=== PATIENT | female | born 1965 | race Caucasian/White ===

== ENCOUNTER → 2016-11-05 | Day surgery (SDC) | payer OTHER ==
[2016-10-29 09:01] VITALS: Ht 157.5 cm; Wt 50.0 kg
[~2016-11-05] VITALS: Ht 157.5 cm; Wt 50.0 kg
[~2016-11-05] MED LIST: ACET325T96 PO; ASCA500 PO; ATROPINE SULFATE 0.1 MG/ML 5ML SYR IV PRN; ATV/1 PO; B-COTAB18 PO; BLACK COHOSH PO; CALC-51 PO; CALC500T68 PO; CHOL1000 PO; CRAN500C2 PO; DICY10CA55 PO; ENDOSCOPIC MARKER 5 ML SYR ONE; EpHEDrine SULFATE INJ 50 MG/ML AMP IV PRN; FERROUS SULFATE PO; GABA PO; GLUC1CAP35 PO; LIDOCAINE HCL 2% 2 ML VIAL (20MG/ML) ONE; LYSI500C4 PO; MELA3TAB7 PO; MULT-1018 PO; MULT-506 PO; OPTIRAY 320 IV PRN; PROPOFOL IV EMULSION 10 MG/ML 20 ML VIAL IV ONE; PSYL1CAP4 PO; S-AD1TAB6 PO; SODIUM CHLORIDE 0.9% 500ML 500 ML IV ONE; TRYP500C PO; VALERIAN ROOT PO; VITA80005 PO; VITAMIN B12 PO; [UNRECOGNIZED DRUG - CODE] PO; [UNRECOGNIZED DRUG - OTHER] PO; [UNRECOGNIZED DRUG - OTHER] PO
--- NOTE | 2016-11-05 08:46 | Endo History and Physical ---
History & Physical Date of Service: Nov 05, 2016. Chief Complaint: rectal bleeding,positive stool card Referring Physician: Dr.Michael Disla History of Present Illness 51 yo CF who presents for colonoscopy secondary to rectal bleeding. Past Surgical History Hx Cardiac Surgery: No Hx Internal Defibrillator: No Hx Pacemaker: No Hx Abdominal Surgery: Yes (DAYLIN) Hx of Implantable Prosthesis: No Hx Post-Op Nausea and Vomiting: No Hx Cancer Surgery: No Hx Thoracic Surgery: No Hx Orthopedic: No Hx Urinary Tract Surgery: No Family History Colon CA Social History Smoking Status: Never Smoker Hx Substance Use: No Hx Alcohol Use: No Allergies Coded Allergies: No Known Allergies (Verified , 11/05/16) Current Medications Reported Home Medications Medications Dose Route/Sig Max Daily Dose Days Date Category [Fede] 1 Cap PO BID 10/29/16 Reported L-Tryptophan (Tryptophan) 500 Mg Cap 1 Cap PO BID 10/29/16 Reported [Valerian Root] 1,000 Mg PO HS 10/29/16 Reported [Melatonin] 12 Mg PO HS 10/29/16 Reported [Black Cohosh] 1 Cap PO DAILY AFTERNOON 10/29/16 Reported Evening [place] Oil 500 mg (Evening [place] Oil) 1 Cap Cap 1 Cap PO QAM 10/29/16 Reported [Germán Yeast] 1 Cap PO QAM 10/29/16 Reported Fiber (Psyllium) 0.52 Gm Cap 2 Cap PO BID 10/29/16 Reported Multivitamin (Multivitamins) Tab 1 Tab PO QAM 10/29/16 Reported [Vitamin B12] 6,000 Mcg PO QAM 10/29/16 Reported Vitamin B Complex (B-Complex Vitamins) 1 Tab Tab 1 Tab PO QAM 10/29/16 Reported [Ferrous Sulfate] 65 Mg PO QAM 10/29/16 Reported Bentyl (Dicyclomine Hcl) 10 Mg Cap 10 Mg PO TID PRN 10/29/16 Reported Calcium (Calcium Carbonate-Vitamin D) 1 Tab Tab 1 Tab PO HS 03/04/16 Reported Cranberry (Cranberry (Vaccinium Macrocarp) 500 Mg Cap 500 Mg PO QAM 03/04/16 Reported Glucosamine Chondroitin (Qnvarvotfvk-Yjmkyxpxxyc-Zxa C-) 1 Cap Cap 1 Cap PO BID 03/04/16 Reported Vital Signs Weight (Kilograms): 50 Height (Feet): 5 Height (Inches): 2 Date Time Temp Pulse Resp B/P (MAP) Pulse Ox O2 Delivery O2 Flow Rate FiO2 11/05/16 08:19 36 77 20 104/60 (75) 98 Room Air Physical Exam General Appearance: WD/WN, no apparent distress Respiratory/Chest: Auscultation: breath sounds normal Cardiovascular: Heart Auscultation: RRR Abdomen: Bowel Sounds: normal Inspection & Palpation: soft, non-distended, no tenderness, guarding & rebound Assessment and Plan Assessment: 51 yo CF who presents for colonoscopy secondary to rectal bleeding. Plan: Proceed with colonoscopy.
--- NOTE | 2016-11-05 09:16 | Discharge Instructions ---
Endoscopy Patient Instructions Date / Procedure(s) Performed Nov 05, 2016. Colonoscopy Allergy Information Coded Allergies: No Known Allergies (Verified , 11/05/16) Discharge Date / Findings Nov 05, 2016. Sigmoid colon mass with stricturing s/p biopsies and Gissel Ink tattoo Medication Instructions OK to resume all medications today as prescribed Reported Home Medications Medications Dose Route/Sig Max Daily Dose Days Date Category [Fede] 1 Cap PO BID 10/29/16 Reported L-Tryptophan (Tryptophan) 500 Mg Cap 1 Cap PO BID 10/29/16 Reported [Valerian Root] 1,000 Mg PO HS 10/29/16 Reported [Melatonin] 12 Mg PO HS 10/29/16 Reported [Black Cohosh] 1 Cap PO DAILY AFTERNOON 10/29/16 Reported Evening [place] Oil 500 mg (Evening [place] Oil) 1 Cap Cap 1 Cap PO QAM 10/29/16 Reported [Germán Yeast] 1 Cap PO QAM 10/29/16 Reported Fiber (Psyllium) 0.52 Gm Cap 2 Cap PO BID 10/29/16 Reported Multivitamin (Multivitamins) Tab 1 Tab PO QAM 10/29/16 Reported [Vitamin B12] 6,000 Mcg PO QAM 10/29/16 Reported Vitamin B Complex (B-Complex Vitamins) 1 Tab Tab 1 Tab PO QAM 10/29/16 Reported [Ferrous Sulfate] 65 Mg PO QAM 10/29/16 Reported Bentyl (Dicyclomine Hcl) 10 Mg Cap 10 Mg PO TID PRN 10/29/16 Reported Calcium (Calcium Carbonate-Vitamin D) 1 Tab Tab 1 Tab PO HS 03/04/16 Reported Cranberry (Cranberry (Vaccinium Macrocarp) 500 Mg Cap 500 Mg PO QAM 03/04/16 Reported Glucosamine Chondroitin (Wvouybzyurh-Syedacjefmz-Uvj C-) 1 Cap Cap 1 Cap PO BID 03/04/16 Reported Provider Instructions Activity Restrictions - No exercising or heavy lifting for 24 hours. - Do not drink alcohol the day of the procedure. - Do not drive a car or operate machinery until the day after the procedure. - Do not make any important decisions or sign important papers in 24 hours after the procedure. Following Day: - Return to full activity which may include returning to work/school. Diet Start your diet with liquids and light foods (jello, soup, juice, toast). Then eat your usual diet if not nauseated. Treatment For Common After Affects For mild abdominal pain, bloating, or excessive gas: - Rest - Eat lightly - Lie on right side 1) Check CT abdomen/pelvis with PO and IV contrast 2) Check CEA Follow-Up Information Follow-up with Dr.Michael Disla as scheduled Anesthesia Information What You Should Know You have had a procedure that required some medicine to reduce anxiety and discomfort. This treatment is called moderate sedation. After receiving the treatment, you may be sleepy, but you will be able to breathe on your own. The effects of the treatment may last for several hours. Follow these instructions along with Activity/Diet recommendations noted above: * Do NOT do anything where dizziness or clumsiness would be dangerous. * Rest quietly at home today, then you can be up and about tomorrow. * Have a responsible person stay with you the rest of today. * You may have had an I.V. today. If so, you may take the dressing off later today. Recommendations Call your doctor if: * Trouble breathing * Continuous vomiting for more than 24 hours * Temperature above 101 degrees * Severe abdominal pain or bloating * Pain not relieved by pain medicine ordered * There is increased drainage or redness from any incision * A large amount of rectal bleeding greater than 2-3 tablespoons. (If you had a polyp/s removed or have hemorrhoids, a small amount of blood - from the rectum is to be expected.) * You have any unanswered questions or concerns. IN THE EVENT OF A SERIOUS EMERGENCY, GO TO THE NEAREST EMERGENCY ROOM Your discharge instructions were prepared by provider Kenyon Abdi. Patient Instructions Signature Page Yanet Mora Patient (or Guardian) Signature/Date: I have read and understand the instructions given to me by my caregivers. Caregiver/RN/Doctor Signature/Date: The above-named patient and/or guardian has received patient instructions on this date. + Original Patient Signature Page (only) stays with chart. Please make copy for patient.
--- NOTE | 2016-11-05 09:26 | GI REPORT ---
Procedure Date: 11/05/2016 8:21 AM Procedure: Colonoscopy Indications: Rectal bleeding Medicines: Monitored Anesthesia Care Complications: No immediate complications. Estimated Blood Loss: Estimated blood loss: none. Procedure: Pre-Anesthesia Assessment: - Prior to the procedure, a History and Physical was performed, and patient medications and allergies were reviewed. The patient's tolerance of previous anesthesia was also reviewed. The risks and benefits of the procedure and the sedation options and risks were discussed with the patient. All questions were answered, and informed consent was obtained. Prior Anticoagulants: The patient has taken no previous anticoagulant or antiplatelet agents. ASA Grade Assessment: II - A patient with mild systemic disease. After reviewing the risks and benefits, the patient was deemed in satisfactory condition to undergo the procedure. After I obtained informed consent, the scope was passed under direct vision. Throughout the procedure, the patient's blood pressure, pulse, and oxygen saturations were monitored continuously. The scope was introduced through the anus with the intention of advancing to the ileum. The scope was advanced to the sigmoid colon before the procedure was aborted. Medications were given. The colonoscopy was performed with moderate difficulty due to a partially obstructing mass. Successful completion of the procedure was aided by changing the patient to a supine position, using manual pressure and withdrawing the scope and replacing with the adult endoscope. The patient tolerated the procedure well. The quality of the bowel preparation was good. The rectum was photographed. Findings: An infiltrative partially obstructing large mass was found in the sigmoid colon. The mass was circumferential. No bleeding was present. Biopsies were taken with a cold forceps for histology. Area was tattooed with an injection of 3 mL of Gissel ink at the distal margin of the mass. Impression: - Likely malignant partially obstructing tumor in the sigmoid colon. Biopsied. Tattooed. Recommendation: - Resume previous diet. - Continue present medications. - Check liver enzymes (AST, ALT, alkaline phosphatase, bilirubin), hemogram with white blood cell count and platelets and CEA today. - Perform a CT scan (computed tomography) of abdomen with contrast at appointment to be scheduled. - Refer to a surgeon at appointment to be scheduled. Kenyon Abdi DO 11/05/2016 9:25:21 AM This report has been signed electronically. Note Initiated On: 11/05/2016 8:21 AM I attest to the content of the Intraoperative Record and orders documented therein, exceptions below
--- NOTE | 2016-11-05 09:27 | Anesthesiology Progress Note ---
Anesthesia Post Op Note Date & Time Nov 05, 2016 at 09:27 Vital Signs Pain Intensity: 0 Vital Signs Past 12 Hours Date Time Temp Pulse Resp B/P (MAP) Pulse Ox O2 Delivery O2 Flow Rate FiO2 11/05/16 08:19 36 77 20 104/60 (75) 98 Room Air Notes Mental Status: alert / awake / arousable, participated in evaluation Pt Amnestic to Procedure: Yes Nausea / Vomiting: adequately controlled Pain: adequately controlled Airway Patency, RR, SpO2: stable & adequate BP & HR: stable & adequate Hydration State: stable & adequate Anesthetic Complications: no major complications apparent
[2016-11-05 09:51] VITALS: BP 123/82; PULSE 87; O2SAT 100
--- NOTE | 2016-11-05 12:58 | DIAGNOSTIC IMAGING REPORT ---
ABD/PELVIS IV AND ORAL CONT CT DOSE: 247.92 mGy.cm HISTORY: Rectal bleeding CT TECHNIQUE: Multiaxial CT images of the abdomen and pelvis were performed following the use of intravenous and oral contrast. A dose lowering technique was utilized adhering to the principles of ALARA. COMPARISON STUDY: None. FINDINGS: Lung bases are clear. Several hepatic hypodensities measuring up to 1 cm at the peripheral aspect of the right hepatic lobe as well as lateral aspect left hepatic lobe. These potentially represent small hemangiomas although prior studies are not available for comparison. Metastatic disease is not excluded based only on this study. There has been a prior cholecystectomy. Pancreas appears uniform. Spleen enhances uniformly. Kidneys demonstrate bilateral extrarenal pelves but enhance uniformly. The abdominal bowel pattern is nonobstructive. The appendix opacifies and is normal. There is abnormal thickening of the wall of the mid sigmoid colon. This is primarily at the presacral level, measuring 5 cm, but is also seen within the left lateral sigmoid extending over an additional length of 5 cm. Possibility of colitis versus neoplasm is considered. The remainder the colon appears unremarkable. Several small scattered colonic diverticuli are present. There is no significant retroperitoneal or mesenteric smita pathology. Bladder is midline. Possibility of a fibroid-type uterus is considered. Iliac regions are unremarkable. IMPRESSION: 1. Abnormal thickening/mass Of the wall of the mid sigmoid extending over a complete length of 10 cm. 2. Possibility of neoplasm versus colitis is considered. 3. Multiple small hepatic hemangiomas versus metastatic change. The above report was generated using voice recognition software. It may contain grammatical, syntax or spelling errors. Electronically signed by: Gunnar Sousa M.D. 11/05/2016 12:57 PM Dictated Date/Time: 11/05/2016 12:45 PM
== END | disposition home or self-care (01) ==
LOC: C.GI 07:41
PROVIDERS: ATTEND Internal Medicine
DX: C18.7 Malignant neoplasm of sigmoid colon (principal); K62.5 Hemorrhage of anus and rectum; Z80.0 Family history of malignant neoplasm of digestive organs

== ENCOUNTER 2016-11-20 08:09 | Inpatient (IN) | payer OTHER ==
[2016-11-15 14:12] VITALS: BMI 19.0
[2016-11-20] VITALS (9 sets, daily range): BP systolic 101–133; BP diastolic 62–82; PULSE 61–97; TEMP 36.4–37.4; O2SAT 95–99; Ht 157.5 cm; Wt 48.6 kg
[~2016-11-20] VITALS: Ht 157.5 cm; Wt 48.6 kg
[2016-11-20] MEDS: LACTATED RINGER'S 1000ML 1,000 ML IV SCH ×2 (06:00→14:39)
[~2016-11-20 08:09] MED LIST changes: -ACET325T96 PO; -ATROPINE SULFATE 0.1 MG/ML 5ML SYR IV PRN; +CEFAZOLIN 2000 MG/60 ML D5W IV SCH; -ENDOSCOPIC MARKER 5 ML SYR ONE; -EpHEDrine SULFATE INJ 50 MG/ML AMP IV PRN; +HEPARIN SOD 5000 UNIT/0.5 ML CARP SQ SCH; +LACTATED RINGER'S 1000ML 1,000 ML IV SCH; -LIDOCAINE HCL 2% 2 ML VIAL (20MG/ML) ONE; -OPTIRAY 320 IV PRN; -PROPOFOL IV EMULSION 10 MG/ML 20 ML VIAL IV ONE; -SODIUM CHLORIDE 0.9% 500ML 500 ML IV ONE; -[UNRECOGNIZED DRUG - OTHER] PO
[2016-11-20] MEDS ORDERED: BUPIVACAINE/EPINEPHRINE 0.5% MPF 1:200,000 10 ML VIAL ONE (09:42)
[2016-11-20] MEDS ORDERED: ROCURONIUM BROMIDE 10 MG/ML 5 ML VIAL ONE (09:52)
[2016-11-20] MEDS ORDERED: LIDOCAINE HCL 2% 2 ML VIAL (20MG/ML) ONE (09:52)
[2016-11-20] MEDS ORDERED: PROPOFOL IV EMULSION 10 MG/ML 20 ML VIAL IV ONE (09:52)
[2016-11-20] MEDS ORDERED: MIDAZOLAM HCL 1 MG/ML 2ML VIAL ONE (09:53)
[2016-11-20] MEDS ORDERED: FENTANYL CITRATE INJ 50 MCG/1 ML 2 ML VIAL ONE ×3 (09:53→12:07)
--- NOTE | 2016-11-20 10:25 | History & Physical Bridge Note ---
H&P Re-Evaluation Bridge Note: I have examined the patient, reviewed the History & Physical and in the interval since the performance of the History & Physical I have noted the following changes of clinical significance: No changes noted
[2016-11-20] MEDS ORDERED: PROMETHAZINE HCL INJ 6.25 MG in SODIUM CHLORIDE 0.9% 50ML 50 ML IV PRN (10:30)
[2016-11-20] MEDS ORDERED: ONDANSETRON INJ 2 MG/ML 2 ML VIAL IV PRN ×2 (10:30→13:00)
[2016-11-20] MEDS ORDERED: EpHEDrine SULFATE INJ 50 MG/ML AMP IV PRN (10:30)
[2016-11-20] MEDS ORDERED: HYDROmorphone INJ 1 MG/ML SYR IV PRN (10:30)
[2016-11-20] MEDS ORDERED: ATROPINE SULFATE 0.1 MG/ML 5ML SYR IV PRN (10:30)
[2016-11-20] MEDS ORDERED: ONDANSETRON INJ 2 MG/ML 2 ML VIAL ONE (10:59)
[2016-11-20] MEDS ORDERED: DEXAMETHASONE SOD INJ 4 MG/ML VIAL ONE (10:59)
[2016-11-20] MEDS ORDERED: PHENYLEPHRINE 100MCG/ML 5ML SYR ONE (10:59)
--- NOTE | 2016-11-20 12:54 | [facility] Operative Report ---
Operative Report Operative Date Nov 20, 2016. Pre-Operative Diagnosis Colon Cancer Post-Operative Diagnosis Same Procedure(s) Performed Laparoscopic Sigmoid Colectomywith Sigmoidoscope Surgeon Dr Baum [employer] Merchandiser Surgeon(s) Bobby Grady PA-C Estimated Blood Loss 30ml Findings large sigmoid colon mass; small /simple hepatic cyst. no evidence of metastatic disease. Specimens A. Portion of sigmoid colon B. Distal Donut Drains NILO into pelvis Anesthesia get Disposition Recovery Room / PACU Description of Procedure After informed consent was obtained the patient was taken operating suite placed in supine position. After successful intubation a Kumari catheter was placed and the arms were tucked. The patient was placed in a low lithotomy position with yellowfin stirrups. The abdomen and perineum were sterilely prepped and draped in usual fashion. A supra umbilical incision through an old scar line was made with 11 blade scalpel and carried down through the soft tissue using electrocautery. Anterior rectus fascia was opened using electrocautery and 2 #0 Vicryl stay sutures were placed. Peritoneum was entered using blunt prior penetration and a finger sweep was performed to take down any underlying adhesions. A 12 mm Barrera trocar was placed in the abdomen was insufflated 18 mmHg. Laparoscope was inserted and the abdomen examined 360 . A right lower quadrant 12 mm trocar and a right mid abdominal 5 movement trocar in the left lower quadrant 5 mL trocar were all placed under direct vision. The patient was placed in a Trendelenburg position and slightly airplane to the right. We able to palpate with graspers the sigmoid mass. We' re also able to see the tattoo markings on the proximal and. We began by using the harmonic scalpel to take down the white line of Toldt laterally the whole way up almost to the splenic flexure as well as distally down the peritoneal reflection. Once we had the left and sigmoid colon fully mobilized I then was able used a Harmonic scalpel to create a small window in the mesentery distal to the area of the tattoo ink. A EDY purple cartridge stapler was used to transect the rectosigmoid again distal to the tattoo. We then took down the mesentery using Harmonic scalpel staying as close to the base as possible to get lymph node sampling. We were able to identify the left ureter to keep it out of harm's way. We continued to dissect and take down the sigmoid mesentery using Harmonic scalpel until we were well above the visible area of the mass. We then grabbed the end of the distal staple line and widened the left lower quadrant trocar site with electrocautery including opening the fascia. We then toweled off the skin and delivered the colon and exteriorized it. We were able to palpate the mass and clamped the bowel several inches proximal to the area of the tumor and transected the colon passed it off to the back table. We then used 2-0 silk to create a handsewn pursestring in the colon. We used sizers to estimate the lumen sized to be 25 mm. We took the anvil of a 25 mm circular stapler placed in the end of the colon and secured it with the pursestrings. We then dunked this back into the abdominal cavity. I closed the fascial defect with 0 Vicryl in running fashion. I then went examined the specimen on a back table. We were pretty low in the pelvis down past peritoneal reflection. We did have what appeared to be somewhere between 3 and 5 cm clear of the tumor after I opened the colon. I felt this was adequate and passed off the specimen. I then re-scrubbed and regowned and regloved. We did mobilize a little more the left colon with Harmonic scalpel. It did seem to fall down in the pelvis quite nicely. We brought in the handle of the circular stapler in the rectal stump and deployed the spike. The handle was connected to the anvil and they were secured together and fired creating a circular functional end-to- end anastomosis. We did check the donuts and they were both intact. I then submerge the anastomosis under water with a rigid sigmoidoscope we inflated the rectosigmoid. There was no evidence of leak was completely airtight. I thoroughly irrigated the pelvis. There was adequate hemostasis at the end of the procedure. I did place place a 10 flat [place]-Wyatt drain down into the pelvis. Through one of the port sites and secured using 0 Vicryl. The anastomosis appeared to be nice and relaxed without much tension on it. No other abnormalities were identified. We did examine the liver. There was a small cyst in the right lobe appeared to be a simple cyst. No evidence of metastatic disease was seen on the liver or any other peritoneal surfaces. We removed all trochars and desufflated the abdomen. The fascia of the camera port was closed using 0 Vicryl figure of 8 fashion. All wounds were irrigated and closed using 4-0 Monocryl. Marcaine was injected around them. Skin glue was used as a dressing. Patient was awaken extubated and transferred recovery in stable condition I attest to the content of the Intraoperative Record and any orders documented therein. Any exceptions are noted below.
[2016-11-20] MEDS ORDERED: GLYCOPYRROLATE INJ 0.2 MG/ML VIAL ONE (12:58)
[2016-11-20] MEDS ORDERED: NEOSTIGMINE METHYLSULFATE 5 MG/5 ML SYR ONE (12:58)
[2016-11-20] MEDS ORDERED: MoRPHine SULFATE 4 MG/ML 1 ML CARP\\VIAL IV PRN (13:00)
[2016-11-20] MEDS ORDERED: LORAZEPAM 1 MG TAB PO PRN (13:00)
[2016-11-20] MEDS: FENTANYL CITRATE INJ 50 MCG/1 ML 2 ML VIAL IV PRN ×3 (13:02→13:12)
--- NOTE | 2016-11-20 13:44 | Anesthesiology Progress Note ---
Anesthesia Post Op Note Date & Time Nov 20, 2016 at 13:44 Vital Signs Pain Intensity: 2 Vital Signs Past 12 Hours Date Time Temp Pulse Resp B/P (MAP) Pulse Ox O2 Delivery O2 Flow Rate FiO2 11/20/16 13:30 36.8 65 16 123/67 97 Nasal Cannula 2 11/20/16 13:20 47 10 107/60 98 Nasal Cannula 2 11/20/16 13:10 54 14 124/69 100 Oxymask 10 11/20/16 13:00 63 17 128/74 100 Oxymask 10 11/20/16 12:53 36.0 84 16 115/66 98 Oxymask 10 11/20/16 08:42 36.9 97 18 123/82 Room Air 11/20/16 08:27 36.9 97 18 123/82 Room Air Notes Mental Status: alert / awake / arousable, participated in evaluation Pt Amnestic to Procedure: Yes Nausea / Vomiting: adequately controlled Pain: adequately controlled Airway Patency, RR, SpO2: stable & adequate BP & HR: stable & adequate Hydration State: stable & adequate Anesthetic Complications: no major complications apparent
[2016-11-20] MEDS ORDERED: LACTATED RINGER'S 1000ML 1,000 ML IV SCH (15:00)
[2016-11-20] MEDS: CEFOXITIN IV 2,000 MG in DEXTROSE 5% 50ML 50 ML IV SCH ×2 (15:59→21:32)
[2016-11-20] MEDS: ACETAMINOPHEN IV 650 MG in EMPTY BAG 0 ML IV SCH ×2 (16:00→23:28)
[2016-11-20] MEDS ORDERED: LORAZEPAM 1 MG TAB PO SCH (21:00)
[2016-11-21] MEDS: CEFOXITIN IV 2,000 MG in DEXTROSE 5% 50ML 50 ML IV SCH (03:30)
[2016-11-21 03:33] VITALS: BP 109/72; PULSE 77; TEMP 36.9; O2SAT 97
[2016-11-21] MEDS: ACETAMINOPHEN IV 650 MG in EMPTY BAG 0 ML IV SCH ×3 (07:44→23:38)
[2016-11-21] MEDS: LACTATED RINGER'S 1000ML 1,000 ML IV SCH ×2 (07:45→17:36)
[2016-11-21] MEDS ORDERED: LACTATED RINGER'S 1000ML 1,000 ML IV SCH (07:45)
--- NOTE | 2016-11-21 07:48 | Surgery Progress Note ---
Surgery Progress Note Date of Service Nov 21, 2016. Subjective Post OP Day: 1 + feeling well, + pain controlled (Ofirmev), No nausea Objective Vital Signs: Date Time Temp Pulse Resp B/P (MAP) Pulse Ox O2 Delivery O2 Flow Rate FiO2 11/21/16 03:33 36.9 77 16 109/72 (84) 97 Room Air 11/20/16 23:30 Room Air 11/20/16 23:05 37.4 92 16 101/62 (75) 96 Room Air 11/20/16 19:54 37.1 61 18 117/72 (87) 95 Room Air 11/20/16 17:19 36.8 76 18 110/70 (83) 96 Room Air 11/20/16 16:26 36.6 67 16 109/72 (84) 96 Room Air 11/20/16 15:30 Room Air 11/20/16 15:20 36.4 62 16 115/72 (86) 95 Room Air 11/20/16 14:50 62 18 123/74 (90) 98 11/20/16 14:20 99 Room Air 11/20/16 14:19 36.4 70 18 133/81 (98) 99 Room Air 11/20/16 14:00 51 13 132/64 100 Nasal Cannula 2 11/20/16 13:45 46 12 119/77 100 Nasal Cannula 2 11/20/16 13:30 36.8 65 16 123/67 97 Nasal Cannula 2 11/20/16 13:20 47 10 107/60 98 Nasal Cannula 2 11/20/16 13:10 54 14 124/69 100 Oxymask 10 11/20/16 13:00 63 17 128/74 100 Oxymask 10 11/20/16 12:53 36.0 84 16 115/66 98 Oxymask 10 11/20/16 08:42 36.9 97 18 123/82 Room Air 11/20/16 08:27 36.9 97 18 123/82 Room Air Physical Exam: NILO drainage (50), urine output (1200) Abdomen: non distended, soft Incision(s): intact (dressing) Laboratory Results: Results Past 24 Hours Test 11/21/16 04:44 11/21/16 07:34 Range/Units Assessment & Plan s/p lap sigmoid colectomy AM labs pending will continue Ofirmev, she doesnt want to use morphine can have clears
--- NOTE | 2016-11-21 07:54 | Anesthesiology Progress Note ---
Anesthesia Post Op Note Date & Time Nov 21, 2016 at 07:53 Vital Signs Pain Intensity: 3 Vital Signs Past 12 Hours Date Time Temp Pulse Resp B/P (MAP) Pulse Ox O2 Delivery O2 Flow Rate FiO2 11/21/16 03:33 36.9 77 16 109/72 (84) 97 Room Air 11/20/16 23:30 Room Air 11/20/16 23:05 37.4 92 16 101/62 (75) 96 Room Air 11/20/16 19:54 37.1 61 18 117/72 (87) 95 Room Air Notes Mental Status: alert / awake / arousable Pt Amnestic to Procedure: Yes Nausea / Vomiting: adequately controlled Pain: adequately controlled Airway Patency, RR, SpO2: stable & adequate BP & HR: stable & adequate Hydration State: stable & adequate Anesthetic Complications: no major complications apparent c/o post op Nausea; it was controlled with zofran;
[2016-11-21 07:55] VITALS: BP 110/70; PULSE 92; TEMP 36.9; O2SAT 95
[2016-11-21 07:57] VITALS: O2SAT 95
[2016-11-21 08:10] LABS: BASO % 0.2 %; BASO ABS # 0.02 K/uL (0-0.2); COMPLETE YES; EOS % 0.1 %; HEMATOCRIT 39.6 % (37-47); IG% 0.1 %; LYMPH % 16.1 %; LYMPH ABS # 1.46 K/uL (1.2-3.4); MEAN CELL VOLUME 96.8 fL (80-100); MEAN CORPUSCULAR HEMOGLOBIN 32.8 pg (25-34); MEAN CORPUSCULAR HGB CONC 33.8 g/dl (32-36); MEAN PLATELET VOLUME 9.6 fL (7.4-10.4); MONO % 7.2 %; NEUT % 76.3 %; PLATELET COUNT 213 K/uL (130-400); RED BLOOD COUNT 4.09 M/uL (4.2-5.4); WHITE BLOOD COUNT 9.05 K/uL (4.8-10.8)
[2016-11-21 08:20] LABS: PARTIAL THROMBOPLASTIN RATIO 1.1; PROTHROMBIN TIME (PATIENT) 10.7 SECONDS (9.0-12.0)
[2016-11-21 08:46] LABS: BUN/CREATININE RATIO 7.6 (10-20); CALCIUM 8.7 mg/dl (8.5-10.1); CREATININE 0.62 mg/dl (0.60-1.20); POTASSIUM 3.7 mmol/L (3.5-5.1)
[2016-11-21] MEDS ORDERED: ENOXAPARIN 40 MG/0.4 ML SYR SQ SCH (09:00)
[2016-11-21 11:27] VITALS: BP 104/70; PULSE 94; TEMP 36.6; O2SAT 96
[2016-11-21] MEDS: ENOXAPARIN 30 MG/0.3 ML SYR SQ SCH (12:59)
[2016-11-21 15:25] VITALS: BP 103/66; PULSE 87; TEMP 36.6; O2SAT 96
[2016-11-21] MEDS ORDERED: ZOLPIDEM TARTRATE 5 MG TAB PO SCH (21:00)
[2016-11-21 23:39] VITALS: BP 106/69; PULSE 92; TEMP 36.9; O2SAT 92
[2016-11-22] MEDS: LACTATED RINGER'S 1000ML 1,000 ML IV SCH (03:45)
[2016-11-22 06:48] LABS: BASO % 0.2 %; BASO ABS # 0.02 K/uL (0-0.2); COMPLETE YES; EOS % 2.2 %; IG% 0.2 %; LYMPH ABS # 1.98 K/uL (1.2-3.4); MEAN CELL VOLUME 97.3 fL (80-100); MEAN CORPUSCULAR HEMOGLOBIN 32.8 pg (25-34); MEAN CORPUSCULAR HGB CONC 33.8 g/dl (32-36); MEAN PLATELET VOLUME 10.2 fL (7.4-10.4); MONO % 6.9 %; NEUT % 67.5 %; PLATELET COUNT 260 K/uL (130-400); RED BLOOD COUNT 4.11 M/uL (4.2-5.4); WHITE BLOOD COUNT 8.61 K/uL (4.8-10.8)
[2016-11-22 07:15] VITALS: BP 100/72; PULSE 105; TEMP 36.5; O2SAT 97
[2016-11-22 08:00] VITALS: O2SAT 97
[2016-11-22] MEDS ORDERED: ONDANSETRON 4 MG TAB PO PRN (08:00)
[2016-11-22] MEDS ORDERED: ACETAMINOPHEN 325 MG TAB PO PRN (08:00)
--- NOTE | 2016-11-22 08:04 | Surgery Progress Note ---
Surgery Progress Note Date of Service Nov 22, 2016. Subjective Post OP Day: 2 + feeling well, + ambulating, + flatus, + pain controlled, + diet (clears), No complaints, No nausea Objective Vital Signs: Date Time Temp Pulse Resp B/P (MAP) Pulse Ox O2 Delivery O2 Flow Rate FiO2 11/22/16 07:15 36.5 105 16 100/72 (81) 97 Room Air 11/21/16 23:39 36.9 92 16 106/69 (81) 92 Room Air 11/21/16 20:00 Room Air 11/21/16 15:25 36.6 87 16 103/66 (78) 96 Room Air 11/21/16 11:27 36.6 94 20 104/70 (81) 96 Room Air 11/21/16 08:10 Room Air Physical Exam: NILO drainage (60 cc) Abdomen: non distended, soft Incision(s): intact (dressing) Laboratory Results: Results Past 24 Hours Test 11/22/16 06:21 Range/Units White Blood Count 8.61 4.8-10.8 K/uL Red Blood Count 4.11 4.2-5.4 M/uL Hemoglobin 13.5 12.0-16.0 g/dL Hematocrit 40.0 37-47 % Mean Corpuscular Volume 97.3 80-100 fL Mean Corpuscular Hemoglobin 32.8 25-34 pg Mean Corpuscular Hemoglobin Concent 33.8 32-36 g/dl Platelet Count 260 130-400 K/uL Mean Platelet Volume 10.2 7.4-10.4 fL Neutrophils (%) (Auto) 67.5 % Lymphocytes (%) (Auto) 23.0 % Monocytes (%) (Auto) 6.9 % Eosinophils (%) (Auto) 2.2 % Basophils (%) (Auto) 0.2 % Neutrophils # (Auto) 5.81 1.4-6.5 K/uL Lymphocytes # (Auto) 1.98 1.2-3.4 K/uL Monocytes # (Auto) 0.59 0.11-0.59 K/uL Eosinophils # (Auto) 0.19 0-0.5 K/uL Basophils # (Auto) 0.02 0-0.2 K/uL RDW Standard Deviation 46.1 36.4-46.3 fL RDW Coefficient of Variation 13.0 11.5-14.5 % Immature Granulocyte % (Auto) 0.2 % Immature Granulocyte # (Auto) 0.02 0.00-0.02 K/uL Assessment & Plan s/p lap sigmoid colectomy lost IV access this AM but only taking Ofirmev, will switch to po meds advance to full liquids, can stop IVF
[2016-11-22] MEDS ORDERED: NON-FORMULARY MEDICATION (Cranberry (Vaccinium Macrocarp (Cranberry) 500 MG) PO SCH (09:00)
[2016-11-22] MEDS: ASCORBIC ACID 500 MG TAB PO SCH (09:00)
[2016-11-22] MEDS: VITAMIN B COMPLEX TAB PO SCH (09:00)
[2016-11-22] MEDS: ENOXAPARIN 30 MG/0.3 ML SYR SQ SCH (09:03)
[2016-11-22 15:25] VITALS: BP 104/72; PULSE 92; TEMP 36.3; O2SAT 96
[2016-11-22] MEDS ORDERED: LORAZEPAM 0.5 MG TAB PO SCH (21:00)
[2016-11-22] MEDS ORDERED: CALCIUM 600MG + VIT D 400 IU TAB PO SCH (21:00)
[2016-11-22 23:31] VITALS: BP 97/66; PULSE 85; TEMP 36.7; O2SAT 98
[2016-11-23 07:08] LABS: BASO % 0.3 %; BASO ABS # 0.02 K/uL (0-0.2); COMPLETE YES; EOS % 4.8 %; HEMATOCRIT 42.7 % (37-47); IG% 0.1 %; LYMPH % 23.3 %; LYMPH ABS # 1.86 K/uL (1.2-3.4); MEAN CELL VOLUME 96.2 fL (80-100); MEAN CORPUSCULAR HEMOGLOBIN 32.4 pg (25-34); MEAN CORPUSCULAR HGB CONC 33.7 g/dl (32-36); MEAN PLATELET VOLUME 9.9 fL (7.4-10.4); MONO % 6.5 %; PLATELET COUNT 281 K/uL (130-400); RED BLOOD COUNT 4.44 M/uL (4.2-5.4); WHITE BLOOD COUNT 7.97 K/uL (4.8-10.8)
--- NOTE | 2016-11-23 07:37 | Surgery Progress Note ---
Surgery Progress Note Date of Service Nov 23, 2016. Subjective Post OP Day: 3 + feeling well, + bowel movement (4-5, orange tinge), + diet (full liquids), No nausea Objective Vital Signs: Date Time Temp Pulse Resp B/P (MAP) Pulse Ox O2 Delivery O2 Flow Rate FiO2 11/22/16 23:31 36.7 85 18 97/66 (76) 98 Room Air 11/22/16 19:15 Room Air 11/22/16 15:25 36.3 92 16 104/72 (83) 96 Room Air 11/22/16 15:12 Room Air 11/22/16 08:00 97 Room Air Physical Exam: NILO drainage (20) Abdomen: non distended, soft Incision(s): clean, dry Laboratory Results: Results Past 24 Hours Test 11/23/16 06:34 Range/Units White Blood Count 7.97 4.8-10.8 K/uL Red Blood Count 4.44 4.2-5.4 M/uL Hemoglobin 14.4 12.0-16.0 g/dL Hematocrit 42.7 37-47 % Mean Corpuscular Volume 96.2 80-100 fL Mean Corpuscular Hemoglobin 32.4 25-34 pg Mean Corpuscular Hemoglobin Concent 33.7 32-36 g/dl Platelet Count 281 130-400 K/uL Mean Platelet Volume 9.9 7.4-10.4 fL Neutrophils (%) (Auto) 65.0 % Lymphocytes (%) (Auto) 23.3 % Monocytes (%) (Auto) 6.5 % Eosinophils (%) (Auto) 4.8 % Basophils (%) (Auto) 0.3 % Neutrophils # (Auto) 5.18 1.4-6.5 K/uL Lymphocytes # (Auto) 1.86 1.2-3.4 K/uL Monocytes # (Auto) 0.52 0.11-0.59 K/uL Eosinophils # (Auto) 0.38 0-0.5 K/uL Basophils # (Auto) 0.02 0-0.2 K/uL RDW Standard Deviation 44.8 36.4-46.3 fL RDW Coefficient of Variation 12.9 11.5-14.5 % Immature Granulocyte % (Auto) 0.1 % Immature Granulocyte # (Auto) 0.01 0.00-0.02 K/uL Assessment & Plan s/p lap sigmoid multiple BMs, will check C. diff advance diet d/c drain recheck later today
[2016-11-23 07:39] LABS: BUN/CREATININE RATIO 4.4 (10-20); CALCIUM 9.2 mg/dl (8.5-10.1); CREATININE 0.63 mg/dl (0.60-1.20); POTASSIUM 3.3 mmol/L (3.5-5.1)
[2016-11-23] MEDS ORDERED: ACET325T96 PO (07:39)
--- NOTE | 2016-11-23 07:41 | Discharge Instructions ---
Discharge Instructions Date of Service Nov 23, 2016. Admission Reason for Admission: Colon Cancer Discharge Discharge Diagnosis / Problem: sigmoid colectomy Discharge Goals Goal(s): Improve disease control Activity Recommendations Activity Limitations: as noted below Lifting Limitations: no more than 10 pounds Exercise/Sports Limitations: as tolerated Shower/Bathe: no limitations Driving or Machine Use: resume 3 days after discharge . Instructions / Follow-Up Instructions / Follow-Up Dr. Baum in 7-10 days, call [phone] for any questions or if you need to schedule an appt Current Hospital Diet Patient's current hospital diet: Low Fiber Diet Discharge Diet Recommended Diet: Low Fiber Diet, Low Fat Diet Procedures Procedures Performed: Laparoscopic Sigmoid Colectomy Pending Studies Studies pending at discharge: yes List of pending studies: Pathology Medical Emergencies . Who to Call and When: Medical Emergencies: If at any time you feel your situation is an emergency, please call 911 immediately. . Non-Emergent Contact Non-Emergency issues call your: Surgeon Call Non-Emergent contact if: you have a fever, temperature is above 101.5, your pain is not controlled, wound has increased redness, you have any medication questions . "Provider Documentation" section prepared by Domingo Grady. . VTE Core Measure Inpt VTE Proph given/why not?: Enoxaparin (Lovenox)SQ, SCD's
[2016-11-23 07:45] VITALS: BP 111/79; PULSE 92; TEMP 36.4; O2SAT 97
[2016-11-23] MEDS: ASCORBIC ACID 500 MG TAB PO SCH (09:20)
[2016-11-23] MEDS: VITAMIN B COMPLEX TAB PO SCH (09:20)
[2016-11-23] MEDS: ENOXAPARIN 30 MG/0.3 ML SYR SQ SCH (09:20)
[2016-11-23] MEDS ORDERED: POTASSIUM CHLORIDE 10 MEQ TABCR PO STA (09:23)
[2016-11-23 11:11] VITALS: BP 111/79; PULSE 92; TEMP 36.4; O2SAT 97
--- NOTE | 2016-11-23 11:18 | Discharge Summary ---
Discharge Summary Date of Service Nov 23, 2016. Admission Date/Reason Nov 20, 2016 at 12:53 Colon Cancer. Discharge Date/Disposition Nov 23, 2016 Home Diagnosis Principal Diagnosis: Sigmoid Colon cancer Procedure(s) Performed Laparoscopic Sigmoid Colectomy Medication Reconciliation New Medications: Acetaminophen Tab (Tylenol) 325 Mg Tab 650 MG PO Q4H, #1 TAB Continued Medications: Ascorbic Acid (Vitamin C) 500 Mg Tab 1 TAB PO QAM B-Complex Vitamins (Vitamin B Complex) 1 Tab Tab 1 TAB PO QAM Calcium Carbonate-Vitamin D (Calcium) 1 Tab Tab 1 TAB PO HS Calcium W/ Magnesium (Calcium/Magnesium) 1 Tab Tab 1 TAB PO HS Cholecalciferol (Vitamin D3) 1,000 Unit Tab 5000 INTERUNIT PO HS for 90 Days, TAB 3 Refills Cranberry (Vaccinium Macrocarp (Cranberry) 500 Mg Cap 500 MG PO QAM Dicyclomine Hcl (Bentyl) 10 Mg Cap 10 MG PO TID PRN for ABDOMINAL CRAMPING, CAP Evening [place] Oil (Evening [place] Oil 500 mg) 1 Cap Cap 1 CAP PO QAM Kdueqevnafu-Iqqcrjsbrbf-Lws C- (Glucosamine Chondroitin) 1 Cap Cap 1 CAP PO BID Lorazepam (Ativan) 1 Mg Tab 1 MG PO HS PRN for ANXIETY , TAB Lysine (L-Lysine) 500 Mg Cap 2 CAP PO BID Multiple Vitamins W/ Minerals (Hair Skin and Nails Formu) 1 Tab Tab 1 TAB PO BID Multivitamin (Multivitamin) Tab 1 TAB PO QAM, TAB S-Adenosylmethionine (Xu E) 400 Mg Tab 1 TAB PO QAM Tryptophan (L-Tryptophan) 500 Mg Cap 1 CAP PO QAM Vitamin A (Vitamin A) 8,000 Unit Cap 1 CAP PO HS [Black Cohosh] () 1 CAP PO DAILY AFTERNOON [Fede] () Unknown Strength Unknown Dose PO BID [Melatonin] () 12 MG PO HS [Valerian Root] () 1000 MG PO HS DOES NOT TAKE REGULARLY [Vitamin B12] () 6000 MCG PO QAM Discontinued Medications: Psyllium (Fiber) 0.52 Gm Cap 2 CAP PO BID [Ferrous Sulfate] () 65 MG PO QAM [Rassberry [place]] () Unknown Strength 2 CAP PO QAM Admission Physical Exam As per Admitting History & Physical. Hospital Course 51 y/o female with partially obstructing sigmoid cancer on colonoscopy now admitted for laparoscopic sigmoid colectomy. She did well postoperatively. She was kept on perioperative Mefoxin and she required only acetaminophen for analgesia. Lovenox and SCDs were utilized for DVT prophylaxis. She had returning bowel function by post op day 2 and had multiple bowel movements later in the day. On day 3 she was tolerating low fiber diet. NILO drain was removed. Her abdomen was soft, flat and incisions were clean and dry. She was stable for discharge. Discharge Instructions Follow-up in [address] Baum Please refer to the electronic Patient Visit Report (Discharge Instructions) for additional information.
== END 2016-11-23 12:45 | disposition home or self-care (01) | DRG 331 ==
LOC: C.ACU 08:09 → C.MSN 12:53 → ENRESERV 13:51
PROVIDERS: ADMIT Surgery; ATTEND Surgery
PROC: 0DBN4ZZ Excision of Sigmoid Colon, Percutaneous Endoscopic Approach (ICD-10-PCS; principal; 2016-11-20 10:00)
DX: C18.7 Malignant neoplasm of sigmoid colon (principal); F32.9 Major depressive disorder, single episode, unspecified; M54.6 Pain in thoracic spine; R11.0 Nausea; R06.83 Snoring; Z79.899 Other long term (current) drug therapy

== ENCOUNTER → 2017-04-12 | Outpatient (CLI) | payer OTHER ==
[~2017-04-12] MED LIST changes: +ABL/5 PO; +ACET-1693 PO; +CALC625T35 PO; -CEFAZOLIN 2000 MG/60 ML D5W IV SCH; +CYAN30003 SL; -DICY10CA55 PO; -FERROUS SULFATE PO; +GARL100T PO; -HEPARIN SOD 5000 UNIT/0.5 ML CARP SQ SCH; -LACTATED RINGER'S 1000ML 1,000 ML IV SCH; +LACTCAP3 PO; +MISCCAP80 PO; +MULT-580 PO; +OMEGCAP2 PO; +PROM25TA9 PO; -PSYL1CAP4 PO; +QUET1TAB34 PO; +SERT50TA PO; +VENL37.52 PO; -[UNRECOGNIZED DRUG - OTHER] PO
--- NOTE | 2017-04-18 12:48 | MAMMOGRAPHY REPORT ---
BILATERAL DIGITAL SCREENING MAMMOGRAM TOMOSYNTHESIS WITH CAD: 04/12/2017 CLINICAL HISTORY: Routine screening. Patient has no complaints. TECHNIQUE: Breast tomosynthesis in addition to standard 2D mammography was performed. Current study was also evaluated with a Computer Aided Detection (CAD) system. COMPARISON: No prior exams were available for comparison. An attempt was made to obtain prior mammog adam, however, the prior outside mammograms were purged and are no longer available for review. BREAST COMPOSITION: The tissue of both breasts is heterogeneously dense, which may obscure small mas ses. FINDINGS: No suspicious masses, calcifications, or areas of architectural distortion are noted in ei ther breast. IMPRESSION: ACR BI-RADS CATEGORY 1: NEGATIVE There is no mammographic evidence of malignancy. A 1 year screening mammogram is recommended. The pa tient will receive written notification of the results. Approximately 10% of breast cancers are not detected with mammography. A negative mammographic report should not delay biopsy if a clinically suggestive mass is present. Carmina Sam M.D. ah/:04/18/2017 12:24:43 [employer] Installer: Jocy Nugent, [facility] letter sent: Normal 1/2 BI-RADS Code: ACR BI-RADS Category 1: Negative
== END | disposition home or self-care (01) ==
LOC: C.MAMM 12:53
PROVIDERS: ATTEND Physician Assistant
DX: Z12.31 Encounter for screening mammogram for malignant neoplasm of breast (principal)

== ENCOUNTER 2017-04-20 20:04 | Emergency (ER) | payer OTHER ==
[~2017-04-20] VITALS: Ht 157.5 cm; Wt 42.0 kg
[~2017-04-20 20:04] MED LIST changes: -ABL/5 PO; -ACET-1693 PO; +ACET325T96 PO; -CALC625T35 PO; -CYAN30003 SL; -GARL100T PO; -LACTCAP3 PO; -MISCCAP80 PO; -MULT-580 PO; -OMEGCAP2 PO; -PROM25TA9 PO; -QUET1TAB34 PO; -SERT50TA PO; -VENL37.52 PO
[2017-04-20 20:05] VITALS: TEMP 36.3; Ht 157.5 cm; Wt 42.0 kg
[2017-04-20] MEDS ORDERED: SERT50TA PO (20:19)
[2017-04-20] MEDS ORDERED: LORAZEPAM 2 MG/ML 1 ML VIAL IV STA (20:27)
--- NOTE | 2017-04-20 20:39 | EMERGENCY ROOM VISIT NOTE ---
History Report prepared by Richard: Cassy Do Under the Supervision of: Dr. Cody Daniels M.D. First contact with patient: 20:11 Chief Complaint: OTHER COMPLAINT Stated Complaint: SHAKING/ANXIETY/PAIN? History of Present Illness The patient is a 52 year old female who presents to the Emergency Room with complaints of an episode of an anxiety attack beginning a couple hours ago. The patient states her anxiety has progressively gotten worse over the past couple days. The patient was on Ativan and states she has been trying to wean herself off it. She is weaning herself off of the Ativan because she states she doesn't want to be "hooked on medications". The patient states she has been "on and off " Zoloft since last spring. She states she weaned herself off of Zoloft. Her doctor was aware she was weaning herself off of Zoloft. The patient states she has also been "on and off" of Ativan for a year. She reports shakiness from her anxiety but denies fevers, cough, chills, congestion, chest pain, or shortness of breath. The patient states she has difficult time falling asleep over the past couple months without "help of medication". She states she does not want to take sleeping pills. She states melatonin does not help her fall asleep. The patient believes her anxiety attack was triggered from withdrawal from Ativan. The patient has a history of colon cancer that was treated by a colon resection in November. Family reports the patient intermittently has episodes of anxiety like this since her colon resection. Source of History: patient Onset: a couple hours ago Position: other (generalized) Quality: other (anxiety) Timing: other (episode) Associated Symptoms: No fevers, No chills Review of Systems See HPI for pertinent positives and negatives. A total of ten systems were reviewed and were otherwise negative. Past Medical & Surgical Medical Problems: (1) Cancer of sigmoid (2) UTI (urinary tract infection) Surgical Problems: (1) Hx of cholecystectomy Family History Cancer Hypertension Kidney disease Kidney stones Social History Smoking Status: Never Smoker Alcohol Use: none Drug Use: none Marital Status: Housing Status: lives with family Current/Historical Medications Scheduled Acetaminophen Tab (Tylenol), 650 MG PO Q4H Ascorbic Acid (Vitamin C), 1 TAB PO QAM B-Complex Vitamins (Vitamin B Complex), 1 TAB PO QAM Calcium W/ Magnesium (Calcium/Magnesium), 1 TAB PO HS Cholecalciferol (Vitamin D3), 5,000 INTERUNIT PO HS Cranberry (Vaccinium Macrocarp (Cranberry), 1,000 MG PO QAM Evening [place] Oil (Evening [place] Oil 500 mg), 1 CAP PO QAM Nrdackvsyxs-Zlgtjhproxl-Fws C- (Glucosamine Chondroitin), 1 CAP PO BID Lysine (L-Lysine), 2 CAP PO BID Multivitamin (Multivitamin), 1 TAB PO QAM Sertraline (Zoloft), 50 MG PO QAM [Black Cohosh], 1 CAP PO DAILY AFTERNOON [Melatonin], 12 MG PO HS Scheduled PRN Lorazepam (Ativan), 0.5 MG PO HS PRN for ANXIETY Allergies Coded Allergies: Corticosteroids (Verified Adverse Reaction, Unknown, TROUBLE SLEEPING, DOESN'T FEEL WELL, 04/20/17) Physical Exam Vital Signs Date Time Temp Pulse Resp B/P (MAP) Pulse Ox O2 Delivery O2 Flow Rate FiO2 04/20/17 23:27 87 18 128/68 98 04/20/17 22:15 82 16 102/62 94 Room Air 04/20/17 21:51 78 04/20/17 21:46 77 20 121/71 98 Room Air 04/20/17 20:05 36.3 118 18 134/70 97 Room Air Physical Exam GENERAL: Awake, alert, anxious and restless-appearing, in no distress HENT: Normocephalic, atraumatic. Oropharynx unremarkable. Dry MM. EYES: Normal conjunctiva. Sclera non-icteric. NECK: Supple. No nuchal rigidity. FROM. No JVD. RESPIRATORY: Clear to auscultation. CARDIAC: Regular rate, normal rhythm. Extremities warm and well perfused. Pulses equal. ABDOMEN: Soft, non-distended. No tenderness to palpation. No rebound or guarding. No masses. RECTAL: Deferred. MUSCULOSKELETAL: Chest examination reveals no tenderness. The back is symmetrical on inspection without obvious abnormality. There is no CVA tenderness to palpation. No joint edema. LOWER EXTREMITIES: Calves are equal size bilaterally and non-tender. No edema. No discoloration. NEURO: Normal sensorium. No sensory or motor deficits noted. SKIN: No rash or jaundice noted. Medical Decision & Procedures ER Provider Diagnostic Interpretation: Radiology results as stated below per my review and radiologist interpretation: CHEST ONE VIEW PORTABLE FINDINGS: The cardiac and mediastinal contours are normal. There is no evidence of focal pulmonary consolidation. There is no evidence of failure. No pleural effusions are visualized.[ No pneumothorax is visualized. IMPRESSION: No active disease in the chest. Electronically signed by: Vasile Hummel M.D. CT HEAD WITHOUT CONTRAST (CT) FINDINGS: There is a partially calcified 2.5 cm mass in the left parietal vertex, abutting the dural surface. This likely represents a meningioma. There is no CT evidence of acute cortical infarction. There is no midline shift. There is no acute hemorrhage. There are minimal white matter hypodensities likely on a small vessel basis. There is no evidence of pathologic ventricular dilatation. There is no evidence of acute sinusitis IMPRESSION: 1. Partially calcified 2.5 cm dural based mass at the left parietal vertex. This statistically represents a meningioma. A nonemergent MRI study is recommended in follow-up for confirmation. 2. Otherwise unremarkable noncontrast head CT. Electronically signed by: Vasile Hummel M.D. Laboratory Results 04/20/17 21:12 Red Blood Count 4.14, Mean Corpuscular Volume 93.7, Mean Corpuscular Hemoglobin 32.9, Mean Corpuscular Hemoglobin Concent 35.1, Mean Platelet Volume 9.9, Neutrophils (%) (Auto) 74.8, Lymphocytes (%) (Auto) 16.4, Monocytes (%) (Auto) 8.0, Eosinophils (%) (Auto) 0.1, Basophils (%) (Auto) 0.4, Neutrophils # (Auto) 5.98, Lymphocytes # (Auto) 1.31, Monocytes # (Auto) 0.64, Eosinophils # (Auto) 0.01, Basophils # (Auto) 0.03 04/20/17 21:12 Test 04/20/17 21:12 04/20/17 21:16 04/20/17 21:43 White Blood Count 7.99 K/uL (4.8-10.8) Red Blood Count 4.14 M/uL (4.2-5.4) Hemoglobin 13.6 g/dL (12.0-16.0) Hematocrit 38.8 % (37-47) Mean Corpuscular Volume 93.7 fL (80-100) Mean Corpuscular Hemoglobin 32.9 pg (25-34) Mean Corpuscular Hemoglobin Concent 35.1 g/dl (32-36) Platelet Count 251 K/uL (130-400) Mean Platelet Volume 9.9 fL (7.4-10.4) Neutrophils (%) (Auto) 74.8 % Lymphocytes (%) (Auto) 16.4 % Monocytes (%) (Auto) 8.0 % Eosinophils (%) (Auto) 0.1 % Basophils (%) (Auto) 0.4 % Neutrophils # (Auto) 5.98 K/uL (1.4-6.5) Lymphocytes # (Auto) 1.31 K/uL (1.2-3.4) Monocytes # (Auto) 0.64 K/uL (0.11-0.59) Eosinophils # (Auto) 0.01 K/uL (0-0.5) Basophils # (Auto) 0.03 K/uL (0-0.2) RDW Standard Deviation 43.1 fL (36.4-46.3) RDW Coefficient of Variation 12.6 % (11.5-14.5) Immature Granulocyte % (Auto) 0.3 % Immature Granulocyte # (Auto) 0.02 K/uL (0.00-0.02) Anion Gap 7.0 mmol/L (3-11) Est Creatinine Clear Calc Drug Dose 99.2 ml/min Estimated GFR () 135.4 Estimated GFR (Non- 116.8 BUN/Creatinine Ratio 26.0 (10-20) Calcium Level 8.7 mg/dl (8.5-10.1) Total Bilirubin 0.5 mg/dl (0.2-1) Direct Bilirubin 0.1 mg/dl (0-0.2) Aspartate Amino Transf (AST/SGOT) 21 U/L (15-37) Alanine Aminotransferase (ALT/SGPT) 28 U/L (12-78) Alkaline Phosphatase 98 U/L (45-117) Troponin I < 0.015 ng/ml (0-0.045) Total Protein 7.2 gm/dl (6.4-8.2) Albumin 3.5 gm/dl (3.4-5.0) Globulin 3.7 gm/dl (2.5-4.0) Albumin/Globulin Ratio 0.9 (0.9-2) Thyroid Stimulating Hormone (TSH) 1.360 uIu/ml (0.300-4.500) Ethyl Alcohol mg/dL < 3.0 mg/dl (0-3) Urine Color YELLOW Urine Appearance CLEAR (CLEAR) Urine pH 8.0 (4.5-7.5) Urine Specific [place] 1.013 (1.000-1.030) Urine Protein NEG (NEG) Urine Glucose (UA) NEG (NEG) Urine Ketones NEG (NEG) Urine Occult Blood NEG (NEG) Urine Nitrite NEG (NEG) Urine Bilirubin NEG (NEG) Urine Urobilinogen NEG (NEG) Urine Leukocyte Esterase NEG (NEG) Urine Opiates Screen NEG (NEG) Urine Methadone, Qualitative NEG (NEG) Urine Barbiturates NEG (NEG) Urine Phencyclidine (PCP) Level NEG (NEG) Ur Amphetamine/Methamphetamine NEG (NEG) MDMA (Ecstasy) Screen NEG (NEG) Urine Benzodiazepines Screen NEG (NEG) Urine Cocaine Metabolite NEG (NEG) Urine Marijuana (THC) NEG (NEG) Laboratory results reviewed by me Medications Administered Medications (Trade) Dose Ordered Sig/Naren Route Start Time Stop Time Status Last Admin Dose Admin Lorazepam (Ativan Inj) 0.5 mg NOW STAT IV 04/20/17 20:27 04/20/17 20:42 DC 04/20/17 21:09 0.5 MG ECG Indication: other (anxiety) Rate (beats per minute): 90 Rhythm: normal sinus (with SA) Findings: no acute ischemic change, other (normal intervals) ED Course 2024: The patient was evaluated in room B11B. A complete history and physical exam was performed. Medical Decision I reviewed the patient's past medical history, medications, and the nursing notes as described above. Differentia diagnoses: anxiety disorder, panic attack, dehydration, electrolyte abnormality, endocrine etiology, pneumonia, bronchitis, UTI, intracranial mass The patient is a 52-year-old woman with a past medical history of colon cancer status post resection who presents to emergency department with persistent anxiety and insomnia for months now worse over the past week after she on her own is attempting to wean herself off Ativan per hpi. On arrival the patient is restless and anxious appearing. She is afebrile with stable vital signs. Neuro intact including normal cerebellar function with [id number]. Labs unremarkable including WBC within normal limits. UA negative. CXR negative. CT head demonstrates a 2.5 cm left parietal mass which is most likely meningioma. No mass effect or midline shift. Further clarified CT findings d/ w radiology who again feels most likely meningioma and unlikely to be metastasis given lack of edema. I discussed these findings with the patient and her family did explain that there are case reports of do associate meningiomas with psychiatric symptoms however there is no definitive consensus that it parietal mass such as a meningioma could cause anxiety. However, I discussed with the patient and family that she should obtain a prompt outpatient follow-up for MRI and likely neurosurgery referral. He was distally discussed with her physician for attempt to wean herself off of Ativan. I spend the patient that given that she only recently resumed his Zoloft the past 3 days it is optimal that she allow Zoloft 3-4 weeks so it may have optimal effect before tending to completely wean off of Ativan. Patient was given Ativan here in the department with good effect and able to sleep comfortably. Findings and plan for follow-up reviewed with patient. Patient agreeable and d/c 'd per discharge instructions. Medication Reconcilliation Current Medication List: was personally reviewed by me Blood Pressure Screening Patient's blood pressure: Normal blood pressure Impression Primary Impression: Anxiety and depression Additional Impression: Meningioma Scribe Attestation The scribe's documentation has been prepared under my direction and personally reviewed by me in its entirety. I confirm that the note above accurately reflects all work, treatment, procedures, and medical decision making performed by me. Departure Information Dispostion Home / Self-Care Referrals No Doctor, Assigned (PCP) Forms HOME CARE DOCUMENTATION FORM, IMPORTANT VISIT INFORMATION, WORK / SCHOOL INSTRUCTIONS Patient Instructions Anxiety Body Response, Anxiety Disorder, ED Brain Tumor, ED Insomnia, My [facility] Additional Instructions Please follow up with your primary care physician on Saturday for re-evaluation and to discuss your medications as well as your CT findings of a Meningioma for which you should obtain a prompt brain MRI to further clarify. Subsequently your doctor can refer you to neurosurgery for additional recommendations regarding this finding. Otherwise, your exam, EKG, chest xray, CT scan, and lab results did not show signs of an emergent condition at this time. Continue your current Zoloft and resume taking your 1mg dose of Ativan for the next couple of weeks and only once stable begin tapering again to 0.5mg. Return to the emergency department for worsening symptoms as described in the accompanying instructions. Problem Qualifiers
[2017-04-20 21:21] LABS: BASO % 0.4 %; BASO ABS # 0.03 K/uL (0-0.2); EOS % 0.1 %; EOS ABS # 0.01 K/uL (0-0.5); HEMATOCRIT 38.8 % (37-47); HEMOGLOBIN 13.6 g/dL (12.0-16.0); IG# 0.02 K/uL (0.00-0.02); LYMPH % 16.4 %; LYMPH ABS # 1.31 K/uL (1.2-3.4); MEAN CELL VOLUME 93.7 fL (80-100); MEAN CORPUSCULAR HEMOGLOBIN 32.9 pg (25-34); MEAN CORPUSCULAR HGB CONC 35.1 g/dl (32-36); MEAN PLATELET VOLUME 9.9 fL (7.4-10.4); MONO ABS # 0.64 K/uL (0.11-0.59); NEUT % 74.8 %; NEUT ABS # 5.98 K/uL (1.4-6.5); PLATELET COUNT 251 K/uL (130-400); RED CELL DISTRIBUTION WIDTH CV 12.6 % (11.5-14.5); RED CELL DISTRIBUTION WIDTH SD 43.1 fL (36.4-46.3); WHITE BLOOD COUNT 7.99 K/uL (4.8-10.8)
--- NOTE | 2017-04-20 21:24 | DIAGNOSTIC IMAGING REPORT ---
CHEST ONE VIEW PORTABLE CLINICAL HISTORY: Atypical chest pain COMPARISON STUDY: 03/04/2016 FINDINGS: The cardiac and mediastinal contours are normal. There is no evidence of focal pulmonary consolidation. There is no evidence of failure. No pleural effusions are visualized.[ No pneumothorax is visualized. IMPRESSION: No active disease in the chest. Electronically signed by: Vasile Hummel M.D. 04/20/2017 9:22 PM Dictated Date/Time: 04/20/2017 9:22 PM
--- NOTE | 2017-04-20 21:33 | DIAGNOSTIC IMAGING REPORT ---
CT HEAD WITHOUT CONTRAST (CT) CLINICAL HISTORY: Acute change in mental status COMPARISON STUDY: No previous studies for comparison. TECHNIQUE: Axial CT of the brain is performed from the vertex to the skull base. IV contrast was not administered for this examination. A dose lowering technique was utilized adhering to the principles of ALARA. CT DOSE: 537.48 mGy.cm FINDINGS: There is a partially calcified 2.5 cm mass in the left parietal vertex, abutting the dural surface. This likely represents a meningioma. There is no CT evidence of acute cortical infarction. There is no midline shift. There is no acute hemorrhage. There are minimal white matter hypodensities likely on a small vessel basis. There is no evidence of pathologic ventricular dilatation. There is no evidence of acute sinusitis IMPRESSION: 1. Partially calcified 2.5 cm dural based mass at the left parietal vertex. This statistically represents a meningioma. A nonemergent MRI study is recommended in follow-up for confirmation. 2. Otherwise unremarkable noncontrast head CT. Electronically signed by: Vasile Hummel M.D. 04/20/2017 9:32 PM Dictated Date/Time: 04/20/2017 9:29 PM
[2017-04-20 21:40] LABS: ALBUMIN 3.5 gm/dl (3.4-5.0); ALT/SGPT 28 U/L (12-78); BLOOD UREA NITROGEN 12 mg/dl (7-18); CALCIUM 8.7 mg/dl (8.5-10.1); CARBON DIOXIDE 25 mmol/L (21-32); CREATININE 0.45 mg/dl (0.60-1.20); GLUCOSE 105 mg/dl (70-99); POTASSIUM 3.7 mmol/L (3.5-5.1); SODIUM 136 mmol/L (136-145)
[2017-04-20 21:51] LABS: ALKALINE PHOSPHATASE 98 U/L (45-117); AST/SGOT 21 U/L (15-37); TOTAL PROTEIN 7.2 gm/dl (6.4-8.2)
[2017-04-20 23:27] VITALS: BP 128/68; PULSE 87; O2SAT 98
== END 2017-04-20 23:22 | disposition home or self-care (01) ==
LOC: C.EDB 20:05
DX: F41.8 Other specified anxiety disorders (principal); D49.7 Neoplasm of unspecified behavior of endocrine glands and other parts of nervous system; Z85.038 Personal history of other malignant neoplasm of large intestine; Z87.440 Personal history of urinary (tract) infections; Z90.49 Acquired absence of other specified parts of digestive tract; Z79.899 Other long term (current) drug therapy; Z88.8 Allergy status to other drugs, medicaments and biological substances; Z80.9 Family history of malignant neoplasm, unspecified; Z82.49 Family history of ischemic heart disease and other diseases of the circulatory system; Z84.1 Family history of disorders of kidney and ureter

== ENCOUNTER 2017-05-06 18:34 | Emergency (ER) | payer OTHER ==
[~2017-05-06] VITALS: Ht 157.5 cm; Wt 48.5 kg
[~2017-05-06 18:34] MED LIST changes: -CALC-51 PO; -GABA PO; -MULT-1018 PO; -S-AD1TAB6 PO; +SERT50TA PO; -TRYP500C PO; -VALERIAN ROOT PO; -VITA80005 PO; -VITAMIN B12 PO
[2017-05-06 19:01] VITALS: TEMP 36.7; Ht 157.5 cm; Wt 48.5 kg
[2017-05-06] MEDS ORDERED: PROM25TA9 PO (19:25)
--- NOTE | 2017-05-06 19:51 | EMERGENCY ROOM VISIT NOTE ---
History Report prepared by Richard: Cassy Do Under the Supervision of: Dr. Marla Renae D.O. First contact with patient: 18:57 Chief Complaint: MENTAL HEALTH EVALUATION Stated Complaint: MENTAL HEALTH EVALUATION History of Present Illness The patient is a 52 year old female who presents to the Emergency Room for a mental health evaluation. The patient reports she had colon cancer and resection surgery in November. The patient had a PET scan in February which showed no signs of disease. 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 Per daughter, the patient followed up with a neurosurgeon who stated the the tumor was "nothing to worry about" and the patient will be watched for close follow up for it. The patient was put on Ativan a year ago and states she has been trying to wean herself off of it starting a month ago. The patient reports she was started on Zoloft while she was being weaned off of Ativan. She states she stopped taking Zoloft "cold turkey" two weeks ago. The patient states she had suicidal thoughts when she started the Zoloft. She states her suicidal thoughts have worsened since she stopped taking the Zoloft. She reports having fleeting suicidal plans. The patient denies ever having a suicidal attempt or hurting herself. She also notes difficulty sleeping and notes taking various medications for it with no relief. The patient reports a decreased appetite over the past couple days. Source of History: patient Position: other (generalized) Quality: other (mental health evaluation) Modifying Factors (Relieving): other (none) Associated Symptoms: No fevers, No chest pain, No SOB, No nausea, No vomiting, No diarrhea, No urinary symptoms Note: Pt notes decreased appetite. Review of Systems See HPI for pertinent positives & negatives. A total of 10 systems reviewed and were otherwise negative. Past Medical & Surgical Medical Problems: (1) Cancer of sigmoid (2) UTI (urinary tract infection) Surgical Problems: (1) Hx of cholecystectomy Family History Cancer Hypertension Kidney disease Kidney stones Social History Smoking Status: Never Smoker Alcohol Use: none Drug Use: none Marital Status: Housing Status: lives with family Current/Historical Medications Scheduled Acetaminophen Tab (Tylenol), 650 MG PO Q4H Ascorbic Acid (Vitamin C), 1 TAB PO QAM B-Complex Vitamins (Vitamin B Complex), 1 TAB PO QAM Calcium W/ Magnesium (Calcium/Magnesium), 1 TAB PO HS Cholecalciferol (Vitamin D3), 5,000 INTERUNIT PO HS Cranberry (Vaccinium Macrocarp (Cranberry), 1,000 MG PO QAM Evening [place] Oil (Evening [place] Oil 500 mg), 3 CAP PO QAM Ydwcyseduuy-Esisdhyewyc-Dmw C- (Glucosamine Chondroitin), 1 CAP PO BID Lysine (L-Lysine), 2 CAP PO BID Multivitamin (Multivitamin), 1 TAB PO QAM Sertraline (Zoloft), 50 MG PO QAM [Black Cohosh], 1 CAP PO DAILY AFTERNOON [Melatonin], 12 MG PO HS Scheduled PRN Lorazepam (Ativan), 0.5 MG PO HS PRN for ANXIETY Promethazine Hcl (Phenergan), 25 MG PO Q6H PRN for Nausea Allergies Coded Allergies: Antihistamines, Diphenhydramine-typ (Unverified Allergy, Unknown, SHAKY, ) Corticosteroids (Verified Adverse Reaction, Unknown, TROUBLE SLEEPING, DOESN'T FEEL WELL, 05/06/17) Physical Exam Vital Signs Date Time Temp Pulse Resp B/P (MAP) Pulse Ox O2 Delivery O2 Flow Rate FiO2 05/07/17 15:09 102 18 125/78 95 Room Air 05/07/17 09:03 80 18 114/63 98 Room Air 05/06/17 23:21 95 20 117/63 97 Room Air 05/06/17 22:03 96 18 124/68 95 Room Air 05/06/17 20:19 108 18 135/88 98 Room Air 05/06/17 19:01 36.7 116 20 133/91 96 Room Air Physical Exam GENERAL: alert, anxious and restless appearing, well nourished, no distress, non -toxic EYE EXAM: normal conjunctiva, PERRL and EOM's grossly intact OROPHARYNX: no exudate, no erythema, lips, buccal mucosa, and tongue normal and mucous membranes are moist NECK: supple, no nuchal rigidity, no adenopathy, non-tender LUNGS: Clear to auscultation. Normal chest wall mechanics HEART: no murmurs, S1 normal and S2 normal ABDOMEN: abdomen soft, non-tender, normo-active bowel sounds, no masses, no rebound or guarding. BACK: Back is symmetrical on inspection and there is no deformity, no midline tenderness, no CVA tenderness. SKIN: no rashes and no bruising UPPER EXTREMITIES: upper extremities are grossly normal. LOWER EXTREMITIES: No pitting edema. NEURO EXAM: Normal sensorium, cranial nerves II-XII grossly intact, normal speech, no gross weakness of arms, no gross weakness of legs. Medical Decision & Procedures Laboratory Results 05/06/17 20:37 Red Blood Count 4.02, Mean Corpuscular Volume 96.3, Mean Corpuscular Hemoglobin 33.6, Mean Corpuscular Hemoglobin Concent 34.9, Mean Platelet Volume 9.5, Neutrophils (%) (Auto) 67.4, Lymphocytes (%) (Auto) 23.8, Monocytes (%) (Auto) 7.3, Eosinophils (%) (Auto) 0.9, Basophils (%) (Auto) 0.3, Neutrophils # (Auto) 4.68, Lymphocytes # (Auto) 1.65, Monocytes # (Auto) 0.51, Eosinophils # (Auto) 0.06, Basophils # (Auto) 0.02 05/06/17 20:37 Test 05/06/17 19:19 05/06/17 20:37 05/06/17 21:15 05/07/17 12:19 Urine Opiates Screen NEG (NEG) Urine Methadone, Qualitative NEG (NEG) Urine Barbiturates NEG (NEG) Urine Phencyclidine (PCP) Level NEG (NEG) Ur Amphetamine/Methamphetamine NEG (NEG) MDMA (Ecstasy) Screen NEG (NEG) Urine Benzodiazepines Screen NEG (NEG) Urine Cocaine Metabolite NEG (NEG) Urine Marijuana (THC) NEG (NEG) White Blood Count 6.94 K/uL (4.8-10.8) Red Blood Count 4.02 M/uL (4.2-5.4) Hemoglobin 13.5 g/dL (12.0-16.0) Hematocrit 38.7 % (37-47) Mean Corpuscular Volume 96.3 fL (80-100) Mean Corpuscular Hemoglobin 33.6 pg (25-34) Mean Corpuscular Hemoglobin Concent 34.9 g/dl (32-36) Platelet Count 211 K/uL (130-400) Mean Platelet Volume 9.5 fL (7.4-10.4) Neutrophils (%) (Auto) 67.4 % Lymphocytes (%) (Auto) 23.8 % Monocytes (%) (Auto) 7.3 % Eosinophils (%) (Auto) 0.9 % Basophils (%) (Auto) 0.3 % Neutrophils # (Auto) 4.68 K/uL (1.4-6.5) Lymphocytes # (Auto) 1.65 K/uL (1.2-3.4) Monocytes # (Auto) 0.51 K/uL (0.11-0.59) Eosinophils # (Auto) 0.06 K/uL (0-0.5) Basophils # (Auto) 0.02 K/uL (0-0.2) RDW Standard Deviation 45.1 fL (36.4-46.3) RDW Coefficient of Variation 12.9 % (11.5-14.5) Immature Granulocyte % (Auto) 0.3 % Immature Granulocyte # (Auto) 0.02 K/uL (0.00-0.02) Anion Gap 4.0 mmol/L (3-11) Est Creatinine Clear Calc Drug Dose 112.0 ml/min Estimated GFR () 134.4 Estimated GFR (Non- 116.0 BUN/Creatinine Ratio 15.9 (10-20) Calcium Level 8.8 mg/dl (8.5-10.1) Total Bilirubin 0.3 mg/dl (0.2-1) Direct Bilirubin < 0.1 mg/dl (0-0.2) Aspartate Amino Transf (AST/SGOT) 17 U/L (15-37) Alanine Aminotransferase (ALT/SGPT) 26 U/L (12-78) Alkaline Phosphatase 95 U/L (45-117) Total Protein 7.0 gm/dl (6.4-8.2) Albumin 3.4 gm/dl (3.4-5.0) Thyroid Stimulating Hormone (TSH) 1.000 uIu/ml (0.300-4.500) Ethyl Alcohol mg/dL < 3.0 mg/dl (0-3) Urine Color YELLOW Urine Appearance CLEAR (CLEAR) Urine pH >= 9.0 (4.5-7.5) Urine Specific [place] 1.011 (1.000-1.030) Urine Protein NEG (NEG) Urine Glucose (UA) NEG (NEG) Urine Ketones NEG (NEG) Urine Occult Blood NEG (NEG) Urine Nitrite NEG (NEG) Urine Bilirubin NEG (NEG) Urine Urobilinogen NEG (NEG) Urine Leukocyte Esterase NEG (NEG) Free Thyroxine 0.97 ng/dl (0.80-1.60) Free Triiodothyronine 3.32 pg/ml (2.30-4.20) Laboratory results per my review. Medications Administered Medications (Trade) Dose Ordered Sig/Naren Route Start Time Stop Time Status Last Admin Dose Admin Lorazepam (Ativan Tab) 1 mg NOW STAT SL 05/06/17 21:32 05/06/17 21:33 DC 05/06/17 21:38 1 MG Promethazine HCl (Phenergan Tab) 25 mg NOW ONCE PO 05/07/17 00:45 05/07/17 00:46 DC 05/07/17 00:56 25 MG Lorazepam (Ativan Tab) 0.5 mg NOW STAT SL 05/07/17 15:17 05/07/17 15:19 DC 05/07/17 15:23 0.5 MG ED Course 1932: The patient was evaluated in room A8. A complete history and physical exam was performed. 2131: Ordered Ativan Tab 1 mg SL. 29: Pt signed out to Dr. Washington. senior fire protection engineer still working on placement for pt. Medical Decision Differential diagnosis: Etiologies such as mood disorder, infection, hypoglycemia, electrolyte abnormalities, cardiac sources, intracerebral event, toxicologic, neurologic, as well as others were entertained. Pt well appearing here. Concern given recent medication changes and abrupt cessation. Doubt any symptoms related to benign and stable intracranial tumor as previously evaluated. Doubt occult infectious etiology. Labs otherwise reassuring. Pt agreeable with plan for admission. Medication Reconcilliation Current Medication List: was personally reviewed by me Blood Pressure Screening Patient's blood pressure: Elevated blood pressure Blood pressure disposition: Elevated BP felt to be situational Impression Primary Impression: Anxiety Additional Impressions: Depression Insomnia Scribe Attestation The scribe's documentation has been prepared under my direction and personally reviewed by me in its entirety. I confirm that the note above accurately reflects all work, treatment, procedures, and medical decision making performed by me. Departure Information Referrals Femi Bullard PA-C (PCP) Patient Instructions My [facility] Problem Qualifiers Additional Impressions: Depression Depression Type: major depressive disorder Major depression recurrence: recurrent Active/Remission status: currently active Major depression episode severity: moderate Qualified Codes: F33.1 - Major depressive disorder, recurrent, moderate Insomnia Insomnia type: unspecified Qualified Codes: G47.00 - Insomnia, unspecified
[2017-05-06 20:46] LABS: BASO % 0.3 %; BASO ABS # 0.02 K/uL (0-0.2); EOS % 0.9 %; EOS ABS # 0.06 K/uL (0-0.5); HEMATOCRIT 38.7 % (37-47); HEMOGLOBIN 13.5 g/dL (12.0-16.0); IG# 0.02 K/uL (0.00-0.02); LYMPH % 23.8 %; LYMPH ABS # 1.65 K/uL (1.2-3.4); MEAN CELL VOLUME 96.3 fL (80-100); MEAN CORPUSCULAR HEMOGLOBIN 33.6 pg (25-34); MEAN CORPUSCULAR HGB CONC 34.9 g/dl (32-36); MEAN PLATELET VOLUME 9.5 fL (7.4-10.4); MONO % 7.3 %; MONO ABS # 0.51 K/uL (0.11-0.59); NEUT % 67.4 %; NEUT ABS # 4.68 K/uL (1.4-6.5); PLATELET COUNT 211 K/uL (130-400); RED CELL DISTRIBUTION WIDTH CV 12.9 % (11.5-14.5); RED CELL DISTRIBUTION WIDTH SD 45.1 fL (36.4-46.3); WHITE BLOOD COUNT 6.94 K/uL (4.8-10.8)
[2017-05-06 21:03] LABS: ALBUMIN 3.4 gm/dl (3.4-5.0); ALT/SGPT 26 U/L (12-78); AST/SGOT 17 U/L (15-37); BLOOD UREA NITROGEN 7 mg/dl (7-18); CALCIUM 8.8 mg/dl (8.5-10.1); CARBON DIOXIDE 28 mmol/L (21-32); CREATININE 0.46 mg/dl (0.60-1.20); GLUCOSE 92 mg/dl (70-99); POTASSIUM 3.6 mmol/L (3.5-5.1); SODIUM 140 mmol/L (136-145)
[2017-05-06 21:14] LABS: ALKALINE PHOSPHATASE 95 U/L (45-117)
[2017-05-06] MEDS ORDERED: LORAZEPAM 1 MG TAB SL STA (21:32)
[2017-05-07] MEDS ORDERED: PROMETHAZINE HCL 25 MG TAB PO ONE (00:45)
--- NOTE | 2017-05-07 07:00 | EMERGENCY ROOM VISIT NOTE ---
ED Visit Note First contact with patient: 00:20 52 yr old severely depressed female signed out to me by Dr Renae awaiting mental health placement for increasing suicidal ideations. Calm, cooperative and not in distress on my evaluation with her family at bedside. Requesting Phenergan to help with sleep which he uses previously which seems reasonable. No issues throughout night and signed out to Dr Caldwell awaiting placement.
[2017-05-07] MEDS ORDERED: PROMETHAZINE HCL 25 MG TAB PO PRN (07:15)
--- NOTE | 2017-05-07 12:37 | EMERGENCY ROOM VISIT NOTE ---
ED Visit Note First contact with patient: 07:02 The patient was taken in signout from Dr. Washington at the change of shift. Please see that note for details. The patient was pending bed search/ placement. [place] [facility] [place] The patient and family requested that thyroid hormone levels be checked. Her TSH was normal. All of her diagnostic testing was normal. T3 and T4 within normal limits. Consent paperwork for transfer was done. The patient was sent via secure transport.
[2017-05-07 15:09] VITALS: BP 125/78; PULSE 102; O2SAT 95
[2017-05-07] MEDS ORDERED: LORAZEPAM 0.5 MG TAB SL STA (15:17)
== END 2017-05-07 15:24 ==
LOC: C.EDB 18:35 → C.EDA 05-07 15:24
DX: F41.9 Anxiety disorder, unspecified (principal); F33.1 Major depressive disorder, recurrent, moderate; G47.00 Insomnia, unspecified; R45.851 Suicidal ideations; Z85.038 Personal history of other malignant neoplasm of large intestine; Z80.9 Family history of malignant neoplasm, unspecified; Z82.49 Family history of ischemic heart disease and other diseases of the circulatory system; Z84.1 Family history of disorders of kidney and ureter

== ENCOUNTER → 2017-11-18 | Day surgery (SDC) | payer OTHER ==
[2017-11-07 14:57] VITALS: BMI 21.0
[~2017-11-18] VITALS: Ht 157.5 cm; Wt 53.2 kg
[~2017-11-18] MED LIST changes: +ABL/5 PO; -ACET325T96 PO; -ATV/1 PO; -BLACK COHOSH PO; +CALC625T35 PO; +CEFAZOLIN 2000 MG/60 ML D5W IV SCH; +CYAN30003 SL; +GARL100T PO; +LACTATED RINGER'S 1000ML 1,000 ML IV SCH; +LACTCAP3 PO; +LIDOCAINE HCL 2% 2 ML VIAL (20MG/ML) ONE; -MELA3TAB7 PO; +MIDAZOLAM HCL 1 MG/ML 2ML VIAL ONE; +MISCCAP80 PO; +MULT-580 PO; +OMEGCAP2 PO; +ONDANSETRON INJ 2 MG/ML 2 ML VIAL ONE; +PROPOFOL IV EMULSION 10 MG/ML 20 ML VIAL ONE; +QUET1TAB34 PO; -SERT50TA PO; +SODIUM CHLORIDE 0.9% 500ML 500 ML IV ONE; +VENL37.52 PO
[2017-11-18 10:01] VITALS: Ht 157.5 cm; Wt 53.2 kg
[2017-11-18 10:12] VITALS: TEMP 36.7
--- NOTE | 2017-11-18 10:14 | Endo History and Physical ---
History & Physical Date of Service: Nov 18, 2017. Chief Complaint: HX COLON CANCER Referring Physician: DR. JIMENEZ History of Present Illness 52 yo CF who presents for colonoscopy secondary to history of colon cancer. Past Surgical History Hx Cardiac Surgery: No Hx Internal Defibrillator: No Hx Pacemaker: No Hx Abdominal Surgery: Yes (DAYLIN, COLON RESECTION) Hx of Implantable Prosthesis: No Hx Post-Op Nausea and Vomiting: No Hx Cancer Surgery: Yes (COLON RESECTION) Hx Thoracic Surgery: No Hx Orthopedic: No Hx Urinary Tract Surgery: No Family History Colon CA Social History Smoking Status: Never Smoker Hx Substance Use: No Hx Alcohol Use: No Allergies Coded Allergies: Antihistamines, Diphenhydramine-typ (Unverified Allergy, Unknown, SHAKY, ) Corticosteroids (Verified Adverse Reaction, Unknown, TROUBLE SLEEPING, DOESN'T FEEL WELL, 11/07/17) Current Medications Reported Home Medications Medications Dose Route/Sig Max Daily Dose Days Date Category Odor Free Garlic (Garlic) 100 Mg Tab 1 Cap PO DAILY 11/07/17 Reported Fish Oil ([place]-3 Fatty Acids) 1 Cap Cap 2 Cap PO DAILY 11/07/17 Reported Vitamin B12 (Cyanocobalamin) 3,000 Mcg Sub 6,000 Mcg SL DAILY 11/07/17 Reported Probiotic (Probiotic Product) 1 Cap Cap 1 Cap PO DAILY 11/07/17 Reported Hair/Skin/Nails (Multiple Vitamins W/ Minerals) 1 Tab Tab 1 Tab PO DAILY 11/07/17 Reported Fiber (Calcium Polycarbophil) 625 Mg Tab 1 Tab PO DAILY 11/07/17 Reported Effexor Xr (Venlafaxine Hcl) 37.5 Mg Cap 3 Cap PO QAM 11/07/17 Reported Seroquel (Quetiapine Fumarate) 100 Mg Tab 100 Mg PO HS 11/07/17 Reported Abilify (Aripiprazole) 5 Mg Tab 5 Mg PO HS 11/07/17 Reported Acidophilus (Lactobacillus) 1 Cap Cap 2 Cap PO DAILY 11/07/17 Reported Vitamin D3 (Cholecalciferol) 1,000 Unit Tab 5,000 Interunit PO HS 90 11/15/16 Reported Vitamin C (Ascorbic Acid) 500 Mg Tab 1 Tab PO QAM 11/15/16 Reported L-Lysine (Lysine) 500 Mg Cap 2 Cap PO BID 11/15/16 Reported Calcium/Magnesium (Calcium W/ Magnesium) 1 Tab Tab 1 Tab PO HS 11/15/16 Reported Evening [place] Oil 500 mg (Evening [place] Oil) 1 Cap Cap 3 Cap PO QAM 10/29/16 Reported Multivitamin (Multivitamins) Tab 1 Tab PO QAM 10/29/16 Reported Vitamin B Complex (B-Complex Vitamins) 1 Tab Tab 1 Tab PO QAM 10/29/16 Reported Cranberry (Cranberry (Vaccinium Macrocarp) 500 Mg Cap 1,000 Mg PO QAM 03/04/16 Reported Glucosamine Chondroitin (Peaklcpyvpt-Shavskmltse-Soz C-) 1 Cap Cap 1 Cap PO BID 03/04/16 Reported Vital Signs Weight (Kilograms): 53.18 Height (Feet): 5 Height (Inches): 2 Physical Exam General Appearance: WD/WN, no apparent distress Respiratory/Chest: Auscultation: breath sounds normal Cardiovascular: Heart Auscultation: RRR Abdomen: Bowel Sounds: normal Inspection & Palpation: soft, non-distended, no tenderness, guarding & rebound Assessment and Plan Assessment: 52 yo CF who presents for colonoscopy secondary to history of colon cancer. Plan: Proceed with colonoscopy.
--- NOTE | 2017-11-18 11:11 | GI REPORT ---
Patient Name: Yanet Mora Procedure Date: 11/18/2017 9:45 AM Date of : 1965 Admit Type: Outpatient Age: 52 Gender: Female Attending MD: Kenyon Abdi DO Procedure: Colonoscopy Providers: Kenyon Abdi DO Referring MD: Femi Bullard Indications: High risk colon cancer surveillance: Personal history of colon cancer Medicines: Monitored Anesthesia Care Complications: No immediate complications. Estimated Blood Loss: Estimated blood loss: none. Procedure: Pre-Anesthesia Assessment: - Prior to the procedure, a History and Physical was performed, and patient medications and allergies were reviewed. The patient's tolerance of previous anesthesia was also reviewed. The risks and benefits of the procedure and the sedation options and risks were discussed with the patient. All questions were answered, and informed consent was obtained. Prior Anticoagulants: The patient has taken no previous anticoagulant or antiplatelet agents. ASA Grade Assessment: II - A patient with mild systemic disease. After reviewing the risks and benefits, the patient was deemed in satisfactory condition to undergo the procedure. After I obtained informed consent, the scope was passed under direct vision. Throughout the procedure, the patient's blood pressure, pulse, and oxygen saturations were monitored continuously. The scope was introduced through the anus and advanced to the terminal ileum. The colonoscopy was performed with difficulty due to post-surgical anatomy. Successful completion of the procedure was aided by withdrawing the scope and replacing with the pediatric colonoscope. The patient tolerated the procedure well. The quality of the bowel preparation was good. The terminal ileum, ileocecal valve, appendiceal orifice, and rectum were photographed. Findings: The perianal and digital rectal examinations were normal. There was evidence of a prior end-to-side colo-colonic anastomosis in the sigmoid colon. This was non-patent and was characterized by moderate stenosis. The anastomosis was traversed after dilation. A TTS dilator was passed through the scope. Dilation with a 12-13.5-15 mm colonic balloon dilator was performed. The dilation site was examined following endoscope reinsertion and showed moderate improvement in luminal narrowing. This was biopsied with a cold forceps for histology. Impression: - Non-patent end-to-side colo-colonic anastomosis, characterized by moderate stenosis. Dilated. Biopsied. Recommendation: - Resume previous diet. - Continue present medications. - Repeat colonoscopy for surveillance based on pathology results. - Return to primary care physician as previously scheduled. Kenyon Abdi, DO 11/18/2017 11:10:21 AM This report has been signed electronically. Note Initiated On: 11/18/2017 9:45 AM Number of Addenda: 1 I attest to the content of the Intraoperative Record and orders documented therein, exceptions below Addendum Number: 1 Addendum Date: 11/18/2017 4:18:12 PM Additional scope # [id number] was used during this procedure Kenyon Abdi, DO 11/18/2017 4:18:57 PM This report has been signed electronically. {[id number]}
[2017-11-18 11:38] VITALS: BP 108/67; PULSE 73; O2SAT 99
--- NOTE | 2017-11-18 11:47 | Anesthesiology Progress Note ---
Anesthesia Post Op Note Date & Time Nov 18, 2017 at 11:47 Vital Signs Pain Intensity: 0 Vital Signs Past 12 Hours Date Time Temp Pulse Resp B/P (MAP) Pulse Ox O2 Delivery O2 Flow Rate FiO2 11/18/17 11:38 73 16 108/67 (81) 99 Room Air 11/18/17 11:27 77 16 101/70 (80) 99 Room Air 11/18/17 11:19 72 16 102/58 (73) 100 Room Air 11/18/17 11:13 81 16 96/76 (83) 99 Room Air 11/18/17 11:08 73 16 90/58 (69) 100 Room Air 11/18/17 10:12 36.7 75 16 121/84 (96) 98 Room Air Notes Mental Status: alert / awake / arousable, participated in evaluation Pt Amnestic to Procedure: Yes Nausea / Vomiting: adequately controlled Pain: adequately controlled Airway Patency, RR, SpO2: stable & adequate BP & HR: stable & adequate Hydration State: stable & adequate Anesthetic Complications: no major complications apparent
--- NOTE | 2017-11-18 11:51 | Discharge Instructions ---
Endoscopy Patient Instructions Date / Procedure(s) Performed Nov 18, 2017. Colonoscopy Allergy Information Coded Allergies: Antihistamines, Diphenhydramine-typ (Verified Allergy, Unknown, SHAKY, 11/18) Corticosteroids (Verified Adverse Reaction, Unknown, TROUBLE SLEEPING, DOESN'T FEEL WELL, 11/07/17) Discharge Date / Findings Nov 18, 2017. Anastomotic stricture s/p dilation and biopsies Medication Instructions OK to resume all medications today as prescribed Reported Home Medications Medications Dose Route/Sig Max Daily Dose Days Date Category Odor Free Garlic (Garlic) 100 Mg Tab 1 Cap PO DAILY 11/07/17 Reported Fish Oil ([place]-3 Fatty Acids) 1 Cap Cap 2 Cap PO DAILY 11/07/17 Reported Vitamin B12 (Cyanocobalamin) 3,000 Mcg Sub 6,000 Mcg SL DAILY 11/07/17 Reported Probiotic (Probiotic Product) 1 Cap Cap 1 Cap PO DAILY 11/07/17 Reported Hair/Skin/Nails (Multiple Vitamins W/ Minerals) 1 Tab Tab 1 Tab PO DAILY 11/07/17 Reported Fiber (Calcium Polycarbophil) 625 Mg Tab 1 Tab PO DAILY 11/07/17 Reported Effexor Xr (Venlafaxine Hcl) 37.5 Mg Cap 3 Cap PO QAM 11/07/17 Reported Seroquel (Quetiapine Fumarate) 100 Mg Tab 100 Mg PO HS 11/07/17 Reported Abilify (Aripiprazole) 5 Mg Tab 5 Mg PO HS 11/07/17 Reported Acidophilus (Lactobacillus) 1 Cap Cap 2 Cap PO DAILY 11/07/17 Reported Vitamin D3 (Cholecalciferol) 1,000 Unit Tab 5,000 Interunit PO HS 90 11/15/16 Reported Vitamin C (Ascorbic Acid) 500 Mg Tab 1 Tab PO QAM 11/15/16 Reported L-Lysine (Lysine) 500 Mg Cap 2 Cap PO BID 11/15/16 Reported Calcium/Magnesium (Calcium W/ Magnesium) 1 Tab Tab 1 Tab PO HS 11/15/16 Reported Evening [place] Oil 500 mg ([place] Oil) 1 Cap Cap 3 Cap PO QAM 10/29/16 Reported Multivitamin (Multivitamins) Tab 1 Tab PO QAM 10/29/16 Reported Vitamin B Complex (B-Complex Vitamins) 1 Tab Tab 1 Tab PO QAM 10/29/16 Reported Cranberry (Cranberry (Vaccinium Macrocarp) 500 Mg Cap 1,000 Mg PO QAM 03/04/16 Reported Glucosamine Chondroitin (Queyrvzxghr-Ydcetgjjgqz-Fit C-) 1 Cap Cap 1 Cap PO BID 03/04/16 Reported Provider Instructions Activity Restrictions - No exercising or heavy lifting for 24 hours. - Do not drink alcohol the day of the procedure. - Do not drive a car or operate machinery until the day after the procedure. - Do not make any important decisions or sign important papers in 24 hours after the procedure. Following Day: - Return to full activity which may include returning to work/school. Diet Start your diet with liquids and light foods (jello, soup, juice, toast). Then eat your usual diet if not nauseated. Treatment For Common After Affects For mild abdominal pain, bloating, or excessive gas: - Rest - Eat lightly - Lie on right side Follow-Up Information Follow-up with DR. JIMENEZ as scheduled Anesthesia Information What You Should Know You have had a procedure that required some medicine to reduce anxiety and discomfort. This treatment is called moderate sedation. After receiving the treatment, you may be sleepy, but you will be able to breathe on your own. The effects of the treatment may last for several hours. Follow these instructions along with Activity/Diet recommendations noted above: * Do NOT do anything where dizziness or clumsiness would be dangerous. * Rest quietly at home today, then you can be up and about tomorrow. * Have a responsible person stay with you the rest of today. * You may have had an I.V. today. If so, you may take the dressing off later today. Recommendations Call your doctor if: * Trouble breathing * Continuous vomiting for more than 24 hours * Temperature above 101 degrees * Severe abdominal pain or bloating * Pain not relieved by pain medicine ordered * There is increased drainage or redness from any incision * A large amount of rectal bleeding greater than 2-3 tablespoons. (If you had a polyp/s removed or have hemorrhoids, a small amount of blood - from the rectum is to be expected.) * You have any unanswered questions or concerns. IN THE EVENT OF A SERIOUS EMERGENCY, GO TO THE NEAREST EMERGENCY ROOM Your discharge instructions were prepared by provider Kenyon Abdi. Patient Instructions Signature Page Yanet Mora Patient (or Guardian) Signature/Date: I have read and understand the instructions given to me by my caregivers. Caregiver/RN/Doctor Signature/Date: The above-named patient and/or guardian has received patient instructions on this date. + Original Patient Signature Page (only) stays with chart. Please make copy for patient.
== END | disposition home or self-care (01) ==
LOC: C.GI 09:31
PROVIDERS: ATTEND Internal Medicine
DX: Z12.11 Encounter for screening for malignant neoplasm of colon (principal); K52.9 Noninfective gastroenteritis and colitis, unspecified; Z85.038 Personal history of other malignant neoplasm of large intestine; Z88.8 Allergy status to other drugs, medicaments and biological substances; G47.33 Obstructive sleep apnea (adult) (pediatric); K21.9 Gastro-esophageal reflux disease without esophagitis; F41.9 Anxiety disorder, unspecified